=== PATIENT | male | born 1950 | race Hispanic/Latino ===

== ENCOUNTER → 2019-06-14 | Outpatient (CLI) | payer OTHER ==
[~2019-06-14] MED LIST: IOHEXOL-350 75 ML VIAL IV ONE
== END | disposition home or self-care (01) ==
LOC: RAH 09:49
PROVIDERS: ATTEND Internal Medicine Cardiovascular Disease
DX: I73.9 Peripheral vascular disease, unspecified (principal); I10 Essential (primary) hypertension; E78.5 Hyperlipidemia, unspecified; I70.0 Atherosclerosis of aorta
CPT/HCPCS: 75635; Q9967

== ENCOUNTER 2019-07-25 10:13 | Day surgery (SDC) | payer OTHER ==
[2019-07-21 12:14] VITALS: BP 135/79
[2019-07-21 12:33] LABS: BASOPHILS % (AUTO) 0.5 % (0.0-5.0); EOSINOPHILS % (AUTO) 1.2 % (0.0-8.0); HEMATOCRIT 36.5 % (42-54); LYMPHOCYTES % (AUTO) 13.9 % (21.0-51.0); MEAN CORPUSCULAR HEMOGLOBIN 29.9 pg (27.0-33.0); MEAN CORPUSCULAR HGB CONC 34.6 g/dL (32.0-36.0); MEAN CORPUSCULAR VOLUME 86.2 fL (79-99); MONOCYTES % (AUTO) 8.5 % (3.0-13.0); NEUTROPHILS % (AUTO) 75.9 % (40.0-77.0); PLATELET COUNT (AUTO) 292 K/uL (130-400); RED BLOOD CELL COUNT(AUTO) 4.24 MIL/uL (4.50-6.20); RED CELL DISTRIBUTION WIDTH 14.9 % (11.0-15.5); WHITE BLOOD COUNT (AUTO) 7.2 K/uL (4.8-10.8)
[2019-07-21 12:43] LABS: INR 0.93 (0.85-1.15); PROTHROMBIN TIME 9.8 SEC (9.6-11.6)
[2019-07-21 12:50] LABS: CREATININE 0.9 mg/dL (0.5-1.5)
--- NOTE | 2019-07-24 12:15 | NUR ---
ABNORMAL LABS ABNORMAL LABS REPORTED TO [facility], CL 91. NO FURTHER ORDERS GIVEN, MAY PROCEED WITH PLANNED PROCEDURE.
[~2019-07-25] VITALS: Ht 160 cm; Wt 99.8 kg
[2019-07-25] VITALS (8 sets, daily range): BP systolic 136–162; BP diastolic 61–101
[~2019-07-25 10:13] MED LIST changes: +ACET-66 PO; +ACETAMINOPHEN 325 MG TAB PO PRN; +ASPI-1181 PO; +CLOP75TA32 PO; +CYAN100099 PO; +DONE10TA43 PO; +ERGO500014 PO; +FAMO20TA8 PO; +GABA600T10 PO; +HYDR25TA PO; -IOHEXOL-350 75 ML VIAL IV ONE; +LEVE750T10 PO; +LEVO25TA54 PO; +LISI-613 PO; +METF-446 PO; +METO25TA6 PO; +OMEP-50 PO; +PIOG30TA70 PO; +ROSU10TA28 PO; +SERT100T12 PO; +SODIUM CHLORIDE 0.9% 500ML 500 ML IV SCH
[2019-07-25] MEDS ORDERED: SODIUM CHLORIDE 0.9% 1000ML 1,000 ML IV ONE (11:43)
[2019-07-25] MEDS ORDERED: HYDR25TA PO (11:57)
--- NOTE | 2019-07-25 12:08 | NUR ---
DARRIN DIOP SLOWLY Addendum: 07/25/19 at 1213 by IRENE SARAVIA RN RN Amended: Links added.
--- NOTE | 2019-07-25 12:13 | NUR ---
ASSESS LEFT FOOT DRESSING DRY AND INTACT. PER DAUGHTER, ULCER TO LEFT FOOT DRY, DENIES HX OF MRSA OR MDRO'S. LEFT FOOT COOL TO TOUCH, MIN SWELLING AND REDNESS NOTED.
[2019-07-25] MEDS ORDERED: LIDOCAINE HCL 2% 20ML ONE (16:52)
[2019-07-25] MEDS ORDERED: SODIUM BICARB 50MEQ 50ML VIAL ONE (16:52)
[2019-07-25] MEDS ORDERED: IODIXANOL 320 MG/ML 100 ML VIAL ONE (16:52)
[2019-07-25] MEDS ORDERED: MIDAZOLAM HCL 1 MG/ML 2ML VIAL ONE (16:53)
[2019-07-25] MEDS ORDERED: MEPERIDINE-PF 25 MG/ML SYG ONE (16:53)
[2019-07-25] MEDS ORDERED: HEPARIN SODIUM 1000UNIT/ML 10ML VIAL ONE (16:53)
[2019-07-25] MEDS ORDERED: NITROGLYCERIN 5 MG/ML 10 ML VIAL IV ONE (16:53)
[2019-07-25] MEDS ORDERED: HYDRALAZINE HCL 20 MG/ML VIAL ONE (17:45)
[2019-07-25] MEDS ORDERED: SODIUM CHLORIDE 0.9% 1000ML 1,000 ML IV SCH (18:08)
[2019-07-25] MEDS ORDERED: GLUCAGON 1MG KIT 1 MG ML IM PRN (18:15)
[2019-07-25] MEDS ORDERED: DEXTROSE 50%-WATER 50 ML DISP.SYRIN IV PRN (18:15)
[2019-07-25] MEDS ORDERED: INSULIN HUMULIN R 100 UNIT/ML 3ML SQ SCH (21:00)
== END 2019-07-25 22:39 | disposition home or self-care (01) ==
LOC: DAH 10:13
PROVIDERS: ATTEND Internal Medicine Cardiovascular Disease
DX: I70.212 Atherosclerosis of native arteries of extremities with intermittent claudication, left leg (principal); E11.621 Type 2 diabetes mellitus with foot ulcer; I10 Essential (primary) hypertension; L97.528 Non-pressure chronic ulcer of other part of left foot with other specified severity; Z98.890 Other specified postprocedural states; F17.210 Nicotine dependence, cigarettes, uncomplicated; Z79.84 Long term (current) use of oral hypoglycemic drugs; Z79.899 Other long term (current) drug therapy; Z79.01 Long term (current) use of anticoagulants; Z82.49 Family history of ischemic heart disease and other diseases of the circulatory system; Z83.3 Family history of diabetes mellitus; Z82.3 Family history of stroke
CPT/HCPCS: 36246; 36415; 71045; 75625; 75710; 80048; 82948 ×5; 85025; 85610; 85730; 93005; A4215; A4216; A4221; A4222; A4223 ×2; A4606; C1760; C1769; C1894; J0360; J1644; J2175; J2250; J3490 ×3; J7030; Q9967; 99156; 99157